=== PATIENT | female | born 1995 | race Caucasian/White ===

== ENCOUNTER 2016-07-29 20:58 | Emergency (ER) | payer OTHER ==
[~2016-07-29] VITALS: Ht 167.6 cm; Wt 63.6 kg
[~2016-07-29 20:58] MED LIST: AMOXICILLIN500 M1 PO; ATARAX,VISTARIL50 MG PO; BACTRIM,SEPT1 TABLET PO; EXPECTA PRENAT1 EACH PO; FERGON324 MG PO; FLAGYL500 MG PO; IBUPROFEN800 MG PO; MACROBID100 MG PO; PRENATAL VITAM1 EAC1 PO; PROZAC10 MG PO; ULTRAM50 MG PO; ZOFRAN4 MG PO
[2016-07-29 22:26] LABS: HEMATOCRIT 32.9 % (36.0-46.0); MCH 31.6 PG (29.0-34.0); MCHC 34.7 G/DL (30.0-36.0); MCV 91.1 FL (83-99); MEAN PLAT.VOLUME 9.6 uM^3 (9.5-12.4); PLATELET COUNT 280 K/uL (156-360); RBC DIS.WIDTH-CV 13.5 % (11.8-14.6); RBC DIS.WIDTH-SD 45.5 % (39-53); RED BLOOD COUNT 3.61 M/uL (3.80-5.20); WHITE BLOOD COUNT 8.9 K/uL (4.1-10.2)
[2016-07-30 01:46] VITALS: BP 134/94
== END 2016-07-30 01:47 | disposition home or self-care (01) ==
LOC: EME 20:58
DX: O20.9 Hemorrhage in early pregnancy, unspecified (principal); R10.9 Unspecified abdominal pain; Z3A.13 13 weeks gestation of pregnancy; O99.331 Smoking (tobacco) complicating pregnancy, first trimester
CPT/HCPCS: 76801; 81003; 84702; 85027; 99281; 99284

== ENCOUNTER 2017-07-30 00:52 | Emergency (ER) | payer OTHER ==
[~2017-07-30] VITALS: Ht 167.6 cm; Wt 59.2 kg
[~2017-07-30 00:52] MED LIST changes: +FERROUS GLUCON324 MG PO; +SPRINTEC1 EACH PO
[2017-07-30 01:17] LABS: HEMATOCRIT 38.8 % (36.0-46.0); HEMOGLOBIN 12.9 G/DL (11.9-15.5); MCH 31.2 PG (29.0-34.0); MCHC 33.2 G/DL (30.0-36.0); MCV 93.7 FL (83-99); PLATELET COUNT 257 K/uL (156-360); RBC DIS.WIDTH-CV 13.9 % (11.8-14.6); RBC DIS.WIDTH-SD 47.4 % (39-53); RED BLOOD COUNT 4.14 M/uL (3.80-5.20); WHITE BLOOD COUNT 10.5 K/uL (4.1-10.2)
[2017-07-30 01:25] LABS: ALBUMIN 4.5 g/dL (3.2-4.8); CHLORIDE 110 mEq/L (99-109); POTASSIUM 3.7 mEq/L (3.7-5.4); SODIUM 143 mEq/L (136-147)
[2017-07-30 01:28] LABS: GLUCOSE 159 mg/dL (70-99); TOTAL PROTEIN 7.7 g/dL (6.4-8.3)
[2017-07-30 01:29] LABS: TOTAL BILIRUBIN 0.3 mg/dL (0.0-1.0)
[2017-07-30 01:30] LABS: SERUM ETHYL ALCOHOL < 10 mg/dL
[2017-07-30 01:31] LABS: GFR ESTIMATE (CALCULATED) > 59 mL/min/
[2017-07-30 01:32] LABS: ALKALINE PHOSPHATASE 79 IU/L (3-129)
[2017-07-30 01:33] LABS: AST (GOT) 16 IU/L (2-34); UREA NITROGEN (BUN) 11 mg/dL (9-23)
[2017-07-30 01:35] LABS: ACETAMINOPHEN (TYLENOL) < 10 mcg/mL (10-30); ALT (GPT) 11 IU/L (3-49); SALICYLATE < 5.0 MG/DL (15-30)
[2017-07-30 01:36] LABS: LIPASE 62 U/L (1.0-51.0)
[2017-07-30 01:42] LABS: QUANTITATIVE HCG 223.1 MIU/ML
[2017-07-30 08:15] VITALS: BP 107/60
[2017-07-30] MEDS ORDERED: PRENATAL TABLE1 EAC3 PO (09:01)
== END 2017-07-30 09:28 | disposition home or self-care (01) ==
LOC: EME 00:52
PROVIDERS: Emergency Medicine
DX: O99.321 Drug use complicating pregnancy, first trimester (principal); T40.601A Poisoning by unspecified narcotics, accidental (unintentional), initial encounter; F19.10 Other psychoactive substance abuse, uncomplicated; O99.511 Diseases of the respiratory system complicating pregnancy, first trimester; G93.89 Other specified disorders of brain; R09.02 Hypoxemia; T68.XXXA Hypothermia, initial encounter; Z3A.01 Less than 8 weeks gestation of pregnancy; O21.9 Vomiting of pregnancy, unspecified; O99.411 Diseases of the circulatory system complicating pregnancy, first trimester; R00.0 Tachycardia, unspecified; O99.341 Other mental disorders complicating pregnancy, first trimester; F32.9 Major depressive disorder, single episode, unspecified; O99.331 Smoking (tobacco) complicating pregnancy, first trimester; F17.200 Nicotine dependence, unspecified, uncomplicated
CPT/HCPCS: 71045; 80053; 83690; 84702; 85027; 93005; 99281; 99285; G0480; J2310; J7030; J7040

== ENCOUNTER 2017-10-06 17:57 | Emergency (ER) | payer OTHER ==
[~2017-10-06] VITALS: Ht 167.6 cm; Wt 58.3 kg
[~2017-10-06 17:57] MED LIST changes: +PRENATAL TABLE1 EAC3 PO
[2017-10-06 19:30] LABS: HEMATOCRIT 33.3 % (36.0-46.0); HEMOGLOBIN 11.8 G/DL (11.9-15.5); MCH 30.9 PG (29.0-34.0); MCHC 35.4 G/DL (30.0-36.0); MCV 87.2 FL (83-99); PLATELET COUNT 209 K/uL (156-360); RBC DIS.WIDTH-CV 13.8 % (11.8-14.6); RBC DIS.WIDTH-SD 43.8 % (39-53); RED BLOOD COUNT 3.82 M/uL (3.80-5.20); WHITE BLOOD COUNT 5.9 K/uL (4.1-10.2)
[2017-10-06 19:39] LABS: ALBUMIN 4.3 g/dL (3.2-4.8); CHLORIDE 102 mEq/L (99-109); POTASSIUM 3.4 mEq/L (3.7-5.4); SODIUM 136 mEq/L (136-147)
[2017-10-06 19:41] LABS: GLUCOSE 119 mg/dL (70-99)
[2017-10-06 19:42] LABS: TOTAL PROTEIN 7.3 g/dL (6.4-8.3)
[2017-10-06 19:43] LABS: TOTAL BILIRUBIN 0.9 mg/dL (0.0-1.0)
[2017-10-06 19:45] LABS: ALKALINE PHOSPHATASE 55 IU/L (3-129); CREATININE 0.7 mg/dL (0.6-1.3); GFR ESTIMATE (CALCULATED) > 59 mL/min/
[2017-10-06 19:46] LABS: UREA NITROGEN (BUN) 11 mg/dL (9-23)
[2017-10-06 19:47] LABS: AST (GOT) 12 IU/L (2-34)
[2017-10-06 19:48] LABS: ALT (GPT) 11 IU/L (3-49)
[2017-10-06] MEDS ORDERED: PERMETHRIN60 GM TP (20:06)
[2017-10-06 20:13] VITALS: BP 125/77
== END 2017-10-06 20:15 | disposition home or self-care (01) ==
LOC: RME 17:57 → EME 17:57 → RME 20:15
PROVIDERS: Physician Assistant
DX: O99.711 Diseases of the skin and subcutaneous tissue complicating pregnancy, first trimester (principal); L29.9 Pruritus, unspecified; Z3A.12 12 weeks gestation of pregnancy; Z20.7 Contact with and (suspected) exposure to pediculosis, acariasis and other infestations
CPT/HCPCS: 80053; 85027; 99281; 99284